=== PATIENT | male | born 2000 | race Caucasian/White ===

== ENCOUNTER 2024-11-05 19:34 | Emergency (ER) | payer OTHER, SELFPAY ==
[2024-11-05] VITALS (32 sets, daily range): BP systolic 126–150; BP diastolic 67–107; PULSE 93–119; RESP 14–34; TEMP 36.9; O2SAT 91–97
--- NOTE | ~2024-11-05 | XR_ITS ---
Examination: XR chest 1V portable Clinical History: SHOB, asthma Comparison: None Technique: Portable AP Findings: Heart size normal. Lungs clear. No acute bony abnormality. IMPRESSION: 1. No acute cardiopulmonary findings given portable technique. Reviewed, dictated and finalized at location R.
--- NOTE | 2024-11-05 20:08 | ECG_ITS ---
Test Date: 2024-11-05 20:25:12 Measurements Intervals [place] Rate: 102 P: 67 KS: 185 QRS: 63 QRSD: 100 T: 48 QT: 327 QTc: 426 Interpretive Statements SINUS TACHYCARDIA No previous ECG available for comparison Electronically Signed On 11-05-2024 20:53:36 CDT by Gabino Doyle D.O
[2024-11-05 20:16] LABS: Hematocrit 44.3 % (42.0-52.0); Hemoglobin 15.2 g/dL (14.0-18.0); Immature Granulocyte Percent A 0.8 % (0-0.5); Lymphocytes Absolute Auto 2.30 K/mm3 (0.9-3.2); Mean Corpuscular HGB Conc 34.3 g/dl (32-36); Mean Corpuscular Hemoglobin 29.5 pg (26-34); Mean Corpuscular Volume 86.0 fl (80-100); Nucleated Red Blood Cells Absolute Auto 0.000 K/mm3 (0.0-0.012); Nucleated Red Blood Cells Perc 0.0 % (0.0-0.2); Platelet Count Result 216 k/mm3 (150-375); Red Blood Count 5.15 M/mm3 (4.6-6.20); White Blood Count 10.5 K/mm3 (4.5-10.0)
[2024-11-05 20:32] LABS: Alanine Aminotransferase 33 U/L (6-50); Albumin Level 4.6 g/dL (3.5-5.1); Alkaline Phosphatase 45 U/L (38-126); Anion Gap 10 mmol/L (4-12); Aspartate Amino Transferase 30 U/L (17-59); Bilirubin,Total 0.5 mg/dL (0.2-1.3); Blood Urea Nitrogen 10 mg/dL (9-20); Calcium 9.1 mg/dL (8.4-10.2); Carbon Dioxide 25 mmol/L (22-30); Chloride 104 mmol/L (98-107); Estimated CRCL calculation 136 ml/min; Estimated Glomerular Filt Rate > 60; Glucose 105 mg/dL (65-110); Potassium 3.5 mmol/L (3.4-5.0); Sodium 139 mmol/L (137-145); Total Protein 7.8 g/dL (6.3-8.2)
[2024-11-05 20:37] LABS: INR 1.0; Prothrombin Time 13.5 Seconds (11.1-14.7)
[2024-11-05 20:38] LABS: Partial Thromboplastin Time 29.8 Seconds (22.3-36.8)
[2024-11-05 20:44] LABS: Troponin I < 0.012 ng/mL (0.000-0.034)
[2024-11-05] MEDS: IPRATROPIUM BR 0.02% INH SOLN 0.5 MG/2.5 ML VIAL 1.5 MG INHALATION (21:11)
[2024-11-05 21:25] LABS: Influenza A QL RT-PCR Negative (Negative); Influenza B QL RT-PCR Negative (Negative); RSV RNA, RT-PCR Negative (Negative); SARS-CoV-2 RNA PCR Negative (Negative)
--- NOTE | 2024-11-05 21:37 | ED_ITS ---
HPI - SOB/Dyspnea General Chief Complaint: Shortness of Breath/Dyspnea Stated Complaint: asthma Time Seen by Provider: 11/05/24 19:50 Source: patient Mode of arrival: ambulatory Limitations: no limitations History of Present Illness HPI Narrative: Patient is a 24-year-old male who presents the ED with report of shortness of breath. Patient has history of asthma his states he has been using his rescue inhaler more frequently over the last several days. He has his inhaler 4 times a day and did not feel improvement shortness of breath. Reports wheezing, chest tightness. Reports some congestion, denies significant cough. Denies fevers. Denies pain or swelling in legs. Related Data Allergies Allergy/AdvReac Type Severity Reaction Status Date / Time No Known Allergies Allergy Verified 11/05/24 19:41 Review of Systems 2 Review of Systems: All systems reviewed & are unremarkable except as noted in HPI. All systems reviewed & are unremarkable except as noted in HPI and below Exam 2 Narrative: GENERAL: Well appearing, obese with BMI of 37.4, non-toxic, in no acute distress. HEAD: Normocephalic, atraumatic. RESPIRATORY: Airway patent, respirations mildly tachypneic. Decreased air movement throughout. Expiratory wheezing heard in all lung nelson. CARDIOVASCULAR: Borderline tachycardic with regular rhythm without murmurs, rubs, or gallops. MUSCULOSKELETAL: Moves all extremities. No gross deformities. No peripheral edema. SKIN: Warm, dry, normal color. NEURO: A&O X3. Speech clear. Cranial nerves II-XII grossly intact. Steady gait. No ataxic movements. PSYCHIATRIC: Appropriate mood and affect. Normal interaction. Course Vital Signs Vital signs: Vital Signs Temperature 98.4 F 11/05/24 19:36 Pulse Rate 103 H 11/05/24 19:36 Respiratory Rate 20 11/05/24 19:36 Blood Pressure 138/92 H 11/05/24 19:36 Pulse Oximetry 96 11/05/24 19:36 Oxygen Delivery Room Air 11/05/24 19:36 Temperature 98.4 F 11/05/24 19:36 Pulse Rate 116 H 11/05/24 23:01 Respiratory Rate 28 H 11/05/24 23:01 Blood Pressure 129/67 11/05/24 23:01 Pulse Oximetry 94 11/05/24 23:01 Oxygen Delivery Room Air 11/05/24 21:14 MDM - SOB/Dyspnea MDM Narrative Medical decision making narrative: Patient presented to ED with shortness breath, chest tightness, wheezing. History of asthma. Denies improvement with rescue inhaler recently. Patient mildly tachycardic upon arrival. Oxygen stable on room air. EKG with sinus tachycardia, no concerning ST changes. Laboratory studies unremarkable. Troponin undetectable. D-dimer within normal range. Viral swabs are negative. Chest X-ray clear, no signs of pneumonia. Patient given 125 of Solu-Medrol and hour long nebulizer treatment. On re- evaluation, he is feeling much improved. Lung quality and wheezing is significantly improved on reauscultation. Feel he is safe for discharge home at this time with close outpatient follow-up. He has a follow-up appointment with his primary care doctor tomorrow. Will discharge on course of prednisone. Advised to continue inhalers. Given return precautions. Patient in agreement with plan, feels comfortable going home. Discharged in stable condition. Medical Records Attestation: I reviewed the patient's medical records. Lab Data Attestation: I reviewed the patient's lab results. 11/05/24 20:09 11/05/24 20:09 Labs: Lab Results 11/05/24 11/05/24 11/05/24 Range/Units 20:09 20:10 20:41 WBC 10.5 H (4.5-10.0) K/mm3 RBC 5.15 (4.6-6.20) M/mm3 Hgb 15.2 (14.0-18.0) g/dL Hct 44.3 (42.0-52.0) % MCV 86.0 (80-100) fl MCH 29.5 (26-34) pg MCHC 34.3 (32-36) g/dl RDW 12.0 (11.5-14.5) % Plt Count 216 (150-375) k/mm3 MPV 10.1 (7.4-10.4) fl Immature Gran % (Auto) 0.8 H (0-0.5) % Neut % (Auto) 67.2 (45.5-73.1) % Lymph % (Auto) 21.9 (18.3-44.2) % [place] % (Auto) 5.3 (2.6-8.5) % Eos % (Auto) 4.2 (0-4.4) % Baso % (Auto) 0.6 (0.2-1.2) % Lymph # (Auto) 2.30 (0.9-3.2) K/mm3 [place] # (Auto) 0.6 (0.1-0.6) K/mm3 Eos # (Auto) 0.4 H (0-0.3) K/mm3 Baso # (Auto) 0.1 (0.0-0.1) K/mm3 Abs Immat Gran (auto) 0.08 H (0.00-0.031) K/mm3 Absolute Neuts (auto) 7.1 H (1.3-6.7) K/mm3 Absolute Nucleated RBC 0.000 (0.0-0.012) K/mm3 Nucleated RBC % 0.0 (0.0-0.2) % PT 13.5 (11.1-14.7) Seconds INR 1.0 APTT 29.8 (22.3-36.8) Seconds D-Dimer < 0.27 (<0.48) ug/mL Sodium 139 (137-145) mmol/L Potassium 3.5 (3.4-5.0) mmol/L Chloride 104 (98-107) mmol/L Carbon Dioxide 25 (22-30) mmol/L Anion Gap 10 (4-12) mmol/L BUN 10 (9-20) mg/dL Creatinine 0.99 (0.7-1.3) mg/dL Estim Creat Clear Calc 136 ml/min Estimated GFR > 60 (59 - ) Glucose 105 (65-110) mg/dL Calcium 9.1 (8.4-10.2) mg/dL Total Bilirubin 0.5 (0.2-1.3) mg/dL AST 30 (17-59) U/L ALT 33 (6-50) U/L Alkaline Phosphatase 45 (38-126) U/L Troponin I < 0.012 Cancelled (0.000-0.034) ng/mL Total Protein 7.8 (6.3-8.2) g/dL Albumin 4.6 (3.5-5.1) g/dL Influenza A (RT-PCR) Negative (Negative) Influenza B (RT-PCR) Negative (Negative) RSV (RT-PCR) Negative (Negative) SARS-CoV-2 RNA (RT-PCR) Negative (Negative) Imaging Data Attestation: I personally reviewed and interpreted this imaging study as follows: Radiologist's impression: STAT RAD CXR: Impression: The heart and mediastinum are within normal limits. Lung volumes are moderate to low with slight central vascular crowding. No acute focal infiltrate or consolidation is seen. No pneumothorax or pleural effusion. No pneumoperitoneum under the diaphragm. No incidental findings. ECG Data EKG #1: Attestation: I personally reviewed and interpreted this ECG as follows: ECG completion date: 11/05/24 ECG completion time: 20:25 EKG Interpretation: tachycardia (102), sinus rhythm and non-specific ST changes Discharge Plan Discharge Clinical Impression: Asthma exacerbation Qualifiers: Asthma severity: unspecified severity Asthma persistence: unspecified Qualified Code(s): J45.901 - Unspecified asthma with (acute) exacerbation Patient Disposition: Home Condition: Stable Instructions: Antibiotic Form, Asthma (ED), Shortness of Breath (ED) Additional Instructions: Take steroids as prescribed for the next 5 days. Continue your inhalers as needed. Follow-up closely with your primary care doctor. Return to ED if you experience worsening or severe difficulty breathing, severe wheezing, chest pain, unable to keep down food or drink, persistent fevers, pain or swelling in her legs, or any other symptoms of concern. Patient Language: Armenian Prescriptions: New prednisone 50 mg tablet 50 mg PO DAILY Qty: 5 0RF Follow-up/Referrals: Kait,Elías Kramer MD [Primary Care Provider, Unknown] Time of Disposition: 23:39
== END 2024-11-05 23:51 | disposition home or self-care (01) ==
PROVIDERS: Emergency Provider Physician Assistant; PCP Family Medicine
DX: J45.901 Unspecified asthma with (acute) exacerbation (principal); R00.0 Tachycardia, unspecified; Z20.822 Contact with and (suspected) exposure to COVID-19
CPT/HCPCS: 36415; 71045; 80053; 84484; 85025; 85380; 85610; 85730; 87637; 93005; 94640; 96374; 99284; J2919